=== PATIENT | female | born 1980 | race Caucasian/White ===

== ENCOUNTER → 2020-01-09 12:57 | Outpatient (CLI) | payer BC, SELFPAY ==
--- NOTE | ~2020-01-09 | MR_ITS ---
EXAMINATION: MR brain/brain stem wo/w con DATE: 01/09/2020 13:41 INDICATION: Unspecified visual loss. TECHNIQUE: Magnetic resonance imaging (MRI) of the brain and brainstem was performed without and with 18 mL MultiHance intravenous contrast. Sequences included sagittal and axial T1-weighted FSE, axial diffusion-weighted FS EPI, axial T2*-weighted GRE, axial T2-weighted FLAIR Propeller, and axial T2-we ighted Propeller. Postcontrast sequences included axial and coronal T1-weighted FSE. Apparent diffusi on coefficient (ADC) maps were created. COMPARISON: None. FINDINGS: There is no intracranial hemorrhage, acute infarction, or abnormal intracranial mass lesion . The ventricles are normal in size. The orbits are normal. There is a mucous retention cyst in left maxillary sinus. The mastoid air cells are normal. IMPRESSION: 1. Normal brain. Reviewed, dictated and finalized at location A. IMPRESSION: 1. Normal brain.
[2020-01-09 13:24] LABS: Estimated Glomerular Filt Rate > 60
== END ==
PROVIDERS: PCP Family Medicine; Visit Provider Family Medicine
DX: H54.7 Unspecified visual loss (principal)
CPT/HCPCS: 36415; 70553; A9577

== ENCOUNTER 2024-04-05 11:09 | Outpatient (CLI) | payer BC, SELFPAY ==
--- NOTE | ~2024-04-05 | MMUS_ITS ---
EXAMINATION: MM diagnostic rajan BI w carlene, US breast LT limited HISTORY: Palpable left breast mass TECHNIQUE: Additional 3-D tomosynthesis images of the left breast were performed and synthetic 2-D im ages were generated. CAD analysis was submitted and interpreted. High resolution Limited left breast ultrasound was performed. COMPARISON: 09/07/2014 BREAST PARENCHYMAL COMPOSITION: Dense: The breasts are extremely dense, which lowers the sensitivity of mammography. FINDINGS: MAMMOGRAPHIC FINDINGS: There is a new mass adjacent to the nipple in the left breast involving the upper outer quadrant. The right breast is stable without evidence for malignancy. ULTRASOUND: Limited left breast ultrasound: There is a complicated cyst of the left breast at 2:00, 3 cm from the nipple measuring 3.2 x 3.5 x 2.3 cm with dependent intermediate density material, likely proteinaceo us material. No abnormal vascularity. There is posterior acoustic enhancement and parallel orientatio n. IMPRESSION: 1. Probable benign complicated cyst of the left breast at 2:00, 3 cm from the nipple measuring 3.5 cm . This corresponds to the palpable area. 2. Recommend 6 month follow-up Limited left breast ultrasound BI-RADS category 3, probably benign findings. Reviewed, dictated and finalized at location B. IMPRESSION: 1. Probable benign complicated cyst of the left breast at 2:00, 3 cm from the n ipple measuring 3.5 cm. This corresponds to the palpable area. 2. Recommend 6 month follow-up Limited left breast ultrasound BI-RADS category 3, probably benign findings.
== END 2024-04-05 11:10 | disposition home or self-care (01) ==
PROVIDERS: PCP Family Medicine; Visit Provider Family Medicine
DX: N63.20 Unspecified lump in the left breast, unspecified quadrant (principal)
CPT/HCPCS: 76642; 77062; 77066; G0279